=== PATIENT | male | born 1985 | race Caucasian/White ===

== ENCOUNTER 2019-05-29 21:12 | Emergency (ER) | payer BC, SELFPAY ==
--- NOTE | ~2019-05-29 | XR_ITS ---
EXAMINATION: XR elbow RT 2V, XR forearm RT 2V, XR wrist RT min 3V DATE: 05/29/2019 21:48 INDICATION: Posttraumatic lateral sided right elbow forearm and wrist pain TECHNIQUE: 1. Anteroposterior, two oblique and lateral views of the right elbow were obtained. 2. Anteroposterior and lateral views of the right forearm were obtained. 3. PA, oblique, lateral and navicular views of the right wrist were obtained. COMPARISON: None. FINDINGS: Alignment is normal from the right elbow through the right wrist and visualized hand. No fracture. Christy int spaces are normal. No right elbow joint effusion. Soft tissue swelling at the volar and radial as pect of the distal forearm. IMPRESSION: 1. No acute osseous abnormality. Reviewed, dictated and finalized at location A. OSURGICAL NURSE PRACTITIONER IMPRESSION: 1. No acute osseous abnormality. IMPRESSION: 1. No acute osseous abnormality.
[2019-05-29 21:21] VITALS: BP 146/101; PULSE 106; RESP 20; TEMP 37.3; O2SAT 97
--- NOTE | 2019-05-29 23:15 | ED_ITS ---
HPI - Wound/Laceration General Chief Complaint: Wound/Laceration Stated Complaint: right arm injury Time Seen by Provider: 05/29/19 22:27 Source: patient and family Mode of arrival: ambulatory Limitations: no limitations History of Present Illness HPI narrative: 33-year-old male Essentially healthy Hit a wooden railing with his right forearm and broke the railing Forearm is sore and swollen and he wants to see if he broke it also Also a minor superficial scrape/laceration in the upper forearm Onset (ago): hour(s) Extremity Location: Right: arm Associated symptoms: pain and other (Swelling) Related Data Home Medications Medication Instructions Recorded Confirmed hydrocodone-acetaminophen [[place]] 1 tablet PO DAILY PRN 05/29/19 Allergies Allergy/AdvReac Type Severity Reaction Status Date / Time ketamine Allergy Rash Verified 05/29/19 21:25 Review of Systems Musculoskeletal: Musculoskeletal: Reports myalgias and Reports arthralgias Integumentary/Breasts: Skin/Breast: Reports as per HPI Neurologic: Denies numbness and Denies weakness Exam Const: General: no acute distress Eyes: Conjunctivae: conjunctivae normal EOM: EOMs intact bilaterally Resp: Effort & Inspection: normal respiratory effort Skin: General skin exam: normal color and no pallor Neuro: General: patient oriented x3 and moves all extremities Extrem: Other: Right arm has full range of motion at the elbow in flexion and extension and supination and pronation There is some mild limitation at the wrist of extension Distal pulses and sensation are normal There is swelling and tenderness just above the wrist but no gross deformity There are 2 superficial scrapes on the upper forearm near the elbow Psych: Affect: normal affect Course Vital Signs Vital signs: Vital Signs Temperature 37.3 C 05/29/19 21:21 Pulse Rate 106 H 05/29/19 21:21 Respiratory Rate 05/29/19 21:21 Blood Pressure 146/101 H 05/29/19 21:21 Pulse Oximetry 97 05/29/19 21:21 Temperature 37.3 C 05/29/19 21:21 Pulse Rate 106 H 05/29/19 21:21 Respiratory Rate 05/29/19 21:21 Blood Pressure 146/101 H 05/29/19 21:21 Pulse Oximetry 97 05/29/19 21:21 MDM - Wound/Laceration Imaging Data Attestation: I personally reviewed and interpreted this imaging study as follows: (No fracture is seen) Discharge Plan Discharge Clinical Impression: Arm injury Patient Disposition: Home, Self-Care Condition: Stable Instructions: Contusion in Adults (ED), Laceration Without Closure (ED) Prescriptions: No Action hydrocodone-acetaminophen [[place]] 7.5-325 mg Tablet 1 tablet PO DAILY PRN (Reason: Pain) RF: 0 Follow-up/Referrals: Yariel,Chetan Simpson MD [Primary Care Provider] - (as needed)
[2019-05-29 23:29] VITALS: BP 133/82; PULSE 80; RESP 17; TEMP 37; O2SAT 100
== END 2019-05-29 23:30 | disposition home or self-care (01) ==
PROVIDERS: Emergency Provider Emergency Medicine; PCP Internal Medicine
DX: S59.911A Unspecified injury of right forearm, initial encounter (principal); W22.8XXA Striking against or struck by other objects, initial encounter
CPT/HCPCS: 73070; 73090; 73110; 99284

== ENCOUNTER 2021-03-06 16:38 | Emergency (ER) | payer BC, SELFPAY ==
--- NOTE | ~2021-03-06 | CT_ITS ---
EXAMINATION: CTA BRAIN/CAROTID DATE: 03/06/2021 20:53 INDICATION: Headache TECHNIQUE: Computed tomographic angiography (CTA) of the head and neck was performed with 100 mL Omni paque-350 intravenous contrast. Multiplanar reconstructions and maximum intensity projection 3D-recon structions of the carotid arteries and of the intracranial arteries were created by the technologist on a separate workstation. Precontrast CT of the head was also obtained. Automated exposure control and iterative reconstruction technique were employed.The dose-length product was 1771.79 mGy-cm. COMPARISON: None. FINDINGS: Carotid arteries: There is no evident atherosclerotic plaque with 0% stenosis of the left and right carotid bulbs bulb relative to normal distal artery lumen diameter (NASCET criteria). There is % stenosis of the left ca rotid bulb relative to normal distal artery lumen diameter. Head: No acute intracranial hemorrhage, acute infarction or abnormal extra axial fluid collection. Ventricl es are normal and symmetric. No mass/mass effect. Tiny mucous retention cyst in the anterior right ma xillary sinus. The orbits and mastoid air cells are normal. Visualized portion of the upper lungs are clear. Right vertebral artery is dominant. Cervical soft tissues are unremarkable. No pathologically enlarged cervical or superior mediastinal lymphadenopathy. Bones are unremarkable. Intracranial arteries There is no hemodynamically significant stenosis in the vertebral, basilar and internal carotid arter ies. Left vertebral artery is dominant. There are no aneurysms identified. Both A1 and P1 segments a re patent. There is also a patent anterior communicating artery. Cerebral arterial arborization appea rs symmetric. No abnormally enhancing brain lesions. IMPRESSION: 1. No evident atherosclerotic plaque with 0% stenosis of the right and left carotid bulbs relative to normal distal artery lumen diameter (NASCET criteria). 2. Normal brain and cerebral CT angiogram. No acute intracranial process. Reviewed, dictated and finalized at location A. R CLEANER IMPRESSION: 1. No evident atherosclerotic plaque with 0% stenosis of the right and left car otid bulbs relative to normal distal artery lumen diameter (NASCET criteria). 2. Normal brain and cerebral CT angiogram. No acute intracranial process.
[2021-03-06 16:42] VITALS: BP 160/90; PULSE 98; RESP 18; TEMP 36.4; O2SAT 100
[2021-03-06 17:10] LABS: Basophils Absolute Auto 0.1 K/mm3 (0.0-0.1); Basophils Percent Auto 0.5 % (0.2-1.2); Eosinophils Absolute Auto 0.1 K/mm3 (0-0.3); Eosinophils Percent Auto 1.2 % (0-4.4); Hematocrit 40.7 % (42.0-52.0); Hemoglobin 13.9 g/dL (14.0-18.0); Immature Granulocyte Absolute 0.07 K/mm3 (0.00-0.031); Immature Granulocyte Percent A 0.7 % (0-0.5); Lymphocytes Absolute Auto 2.25 K/mm3 (0.9-3.2); Lymphocytes Percent Auto 23.7 % (18.3-44.2); Mean Corpuscular HGB Conc 34.2 g/dl (32-36); Mean Corpuscular Hemoglobin 30.2 pg (26-34); Mean Corpuscular Volume 88.3 fl (80-100); Mean Platelet Volume 9.5 fl (7.4-10.4); Monocytes Absolute Auto 0.8 K/mm3 (0.1-0.6); Monocytes Percent Auto 8.9 % (2.6-8.5); Neutrophils Absolute Auto 6.2 K/mm3 (1.3-6.7); Platelet Count Result 293 k/mm3 (150-375); Red Blood Count 4.61 M/mm3 (4.6-6.20); White Blood Count 9.5 K/mm3 (4.5-10.0)
[2021-03-06 17:29] LABS: Alanine Aminotransferase 58 U/L (4-50); Albumin Level 4.9 g/dL (3.5-5.1); Alkaline Phosphatase 62 U/L (38-126); Anion Gap 9 mmol/L (8-16); Aspartate Amino Transferase 47 U/L (17-59); Bilirubin,Total 0.8 mg/dL (0.2-1.3); Blood Urea Nitrogen 13 mg/dL (9-20); Calcium 9.9 mg/dL (8.4-10.2); Carbon Dioxide 27 mmol/L (22-30); Chloride 103 mmol/L (98-107); Estimated CRCL calculation 126 ml/min; Estimated Glomerular Filt Rate > 60; Glucose 101 mg/dL (65-110); Potassium 3.7 mmol/L (3.4-5.0); Sodium 139 mmol/L (137-145)
[2021-03-06 19:07] VITALS: BP 147/109; PULSE 85; RESP 16; O2SAT 99
--- NOTE | 2021-03-06 20:33 | ED.GENADULT ---
HPI - General Adult General Chief complaint: Recheck/Abnormal Lab/Rx <Haseeb Mueller PA-C - Last Filed: 03/08/21 09:26> Stated complaint: high blood pressure, headache <Haseeb Mueller PA-C - Last Filed: 03/08/21 09:26> Time Seen by Provider: 03/06/21 19:12 <Haseeb Mueller PA-C - Last Filed: 03/08/21 09:26> Source: patient <Haseeb Mueller PA-C - Last Filed: 03/08/21 09:26> Mode of arrival: ambulatory <Haseeb Mueller PA-C - Last Filed: 03/08/21 09:26> Limitations: no limitations <Haseeb Mueller PA-C - Last Filed: 03/08/21 09:26> History of Present Illness HPI narrative: Patient presents with chief complaint of elevated blood pressure prior to arrival. Patient reports that he has been having intermittent headaches that are worsened with activity. Patient reports generally he takes some Advil and the headache completely resolves but this time it did not take his blood pressure at home and it was 176/112. Patient reports that he has been aware that he has some hypertension for some time however he has primary care has not initiated any blood pressure medications. Patient reports today the headache was worse than it has ever been is located in the right sided posterior aspect of his head. He reports changes to his peripheral vision as well as nausea. Patient reports that he was also having some ringing in his ears which is now subsided. Patient states that he called his primary care and talked to his and they both made him come to the emergency department to be evaluated. Patient denies any unilateral weakness, speech changes, or gait disturbance. <Haseeb Mueller PA-C - Last Filed: 03/08/21 09:26> Related Data Home medications: Home Medications Medication Instructions Recorded Confirmed hydrocodone-acetaminophen [[place]] 1 tablet PO DAILY PRN 05/29/19 <Haseeb Mueller PA-C - Last Filed: 03/08/21 09:26> Allergies/adverse reactions: Allergies Allergy/AdvReac Type Severity Reaction Status Date / Time ketamine Allergy Rash Verified 03/06/21 19:05 <Haseeb Mueller PA-C - Last Filed: 03/08/21 09:26> Review of Systems Review of Systems: CONSTITUTIONAL: Denies fever, chills, or sweats. EYES: Reports visual changes, denies redness, or discharge. ENT: Denies rhinorrhea, congestion, sore throat, or otalgia. CARDIOVASCULAR: Denies chest pain, palpitations, or edema. RESPIRATORY: Denies cough or dyspnea. GASTROINTESTINAL: Reports resolved nausea denies abdominal pain, vomiting, or diarrhea. GENITOURINARY: Denies dysuria or hematuria. SKIN: Denies rash or itching. MUSCULOSKELETAL: Denies back pain, joint pain, or myalgia. NEUROLOGIC: Reports headache, denies numbness, dizziness, or weakness. PSYCHIATRIC: Denies anxiety or depression. <Haseeb Mueller PA-C - Last Filed: 03/08/21 09:26> Exam Narrative: GENERAL: Well-appearing, well-nourished, and in no acute distress. HEAD: Normocephalic, atraumatic. EYES: PERRLA and EOMI. ENT: Nares clear, no rhinorrhea or epistaxis. Mucous membranes moist. Oropharynx without tonsillar hypertrophy exudate or other lesions. Bilateral TMs pearly payan nonbulging NECK: Supple. No adenopathy or masses. CHEST: Clear to auscultation. No respiratory distress. No wheezes rales or rhonchi HEART: Regular rate and rhythm. No murmur heard. Normal peripheral pulses. ABDOMEN: Soft, nontender, nondistended, normal active bowel sounds. EXTREMITIES: Normal range of motion. No edema. SKIN: Warm, dry, no rash. NEURO: No focal deficits. Alert and oriented x3. Speech clear and appropriate. No unilateral deficits. Facial symmetry noted. PSYCH: Normal mood and affect. <Haseeb Mueller PA-C - Last Filed: 03/08/21 09:26> Course Reevaluation(s) Reevaluation #1: Rechecked. Patient feels better. He rates his headache as 3/10. He has no focal weakness or numbness. I offered to start patient on antihypertensive. However, he and his declined.
[2021-03-06 23:11] VITALS: BP 135/92; PULSE 86; RESP 16; O2SAT 99
== END 2021-03-06 23:13 | disposition home or self-care (01) ==
PROVIDERS: Emergency Provider Emergency Medicine; PCP Internal Medicine
DX: I10 Essential (primary) hypertension (principal); R51.9 Headache, unspecified
CPT/HCPCS: 36415; 70496; 70498; 80053; 85025; 99284; Q9967

== ENCOUNTER 2022-11-12 23:18 | Emergency (ER) | payer BC, SELFPAY ==
--- NOTE | ~2022-11-12 | CT_ITS ---
CT of the Abdomen and Pelvis: Indication: Pancreatitis Technique: 2.5 mm axial scans were obtained through the abdomen and pelvis following intravenous adm inistration of 100 cc of Omnipaque 350. Dose reduction technique was used on this scan by utilizing a utomated exposure control and iterative reconstruction technique. The dose-length product (DLP) was 1 023.54 mGy-cm. Findings: Scans through the lung bases are unremarkable. The liver, spleen, pancreas, gallbladder, adrenals and kidneys are within normal limits. No evidence of aortic aneurysm. No lymphadenopathy. No bowel obstruction or bowel wall thickening. There is no evidence to suggest acute appendicitis. Images through the pelvis were performed. Urinary bladder unremarkable. Prostate gland and seminal ve sicles are unremarkable. Impression: No significant abnormalities seen. Reviewed, dictated and finalized at location . Impression: No significant abnormalities seen.
[2022-11-12 23:22] VITALS: BP 156/96; PULSE 75; RESP 22; TEMP 36.3; O2SAT 100
[2022-11-12 23:30] VITALS: PULSE 73; RESP 12; O2SAT 98
[2022-11-12 23:34] VITALS: BP 171/97; PULSE 75; RESP 13; O2SAT 99
[2022-11-12 23:34] LABS: Basophils Absolute Auto 0.1 K/mm3 (0.0-0.1); Basophils Percent Auto 0.6 % (0.2-1.2); Eosinophils Absolute Auto 0.7 K/mm3 (0-0.3); Eosinophils Percent Auto 6.7 % (0-4.4); Hematocrit 41.4 % (42.0-52.0); Hemoglobin 13.7 g/dL (14.0-18.0); Immature Granulocyte Absolute 0.07 K/mm3 (0.00-0.031); Immature Granulocyte Percent A 0.7 % (0-0.5); Lymphocytes Absolute Auto 4.24 K/mm3 (0.9-3.2); Lymphocytes Percent Auto 43.1 % (18.3-44.2); Mean Corpuscular HGB Conc 33.1 g/dl (32-36); Mean Corpuscular Hemoglobin 29.7 pg (26-34); Mean Corpuscular Volume 89.6 fl (80-100); Mean Platelet Volume 9.9 fl (7.4-10.4); Monocytes Percent Auto 10.3 % (2.6-8.5); Neutrophils Absolute Auto 3.8 K/mm3 (1.3-6.7); Neutrophils Percent Auto 38.6 % (45.5-73.1); Platelet Count Result 311 k/mm3 (150-375); Red Blood Count 4.62 M/mm3 (4.6-6.20); Red Cell Distribution Width 12.1 % (11.5-14.5); White Blood Count 9.8 K/mm3 (4.5-10.0)
[2022-11-12 23:41] VITALS: BP 158/94; PULSE 70; RESP 15; O2SAT 97
[2022-11-12 23:45] VITALS: PULSE 64; RESP 12; O2SAT 97
[2022-11-12 23:45] LABS: Alanine Aminotransferase 42 U/L (6-50); Albumin Level 4.9 g/dL (3.5-5.1); Alkaline Phosphatase 49 U/L (38-126); Anion Gap 8 mmol/L (8-16); Aspartate Amino Transferase 35 U/L (17-59); Bilirubin,Total 0.5 mg/dL (0.2-1.3); Blood Urea Nitrogen 18 mg/dL (9-20); Calcium 9.4 mg/dL (8.4-10.2); Carbon Dioxide 29 mmol/L (22-30); Chloride 102 mmol/L (98-107); Estimated CRCL calculation 112 ml/min; Estimated Glomerular Filt Rate > 60; Glucose 103 mg/dL (65-110); Lipase 1743 U/L (23-300); Potassium 4.2 mmol/L (3.4-5.0); Sodium 139 mmol/L (137-145)
[2022-11-13] VITALS (11 sets, daily range): BP systolic 125–133; BP diastolic 75–93; PULSE 63–81; RESP 14–19; O2SAT 97–100
[2022-11-13 00:14] LABS: Appearance Urine Clear (Clear); Bilirubin Urine Negative (Negative); Blood Urine Negative (Negative); Color Urine Yellow (Yellow); Glucose Urine UA Negative (Negative); Ketones Urine Negative (Negative); Leukocyte Esterase Ur Negative LEU/UL (Negative); Nitrate Urine Negative (Negative); Protein Urine Negative (Negative); Specific Grav Ur 1.023 (1.001-1.035)
--- NOTE | 2022-11-13 00:30 | ED.ABDPAIN ---
HPI - Abdominal Pain General Chief Complaint: Abdominal Pain Stated Complaint: abd pain Time Seen by Provider: 11/13/22 00:25 Source: patient Mode of arrival: ambulatory Limitations: no limitations History of Present Illness HPI narrative: This is a 36-year-old male that presents to the emergency department for epigastric abdominal pain. Reports he has had several similar attacks over the last month. He has had out patient blood work that was unrevealing. Reports his primary doctor ordered a CT scan, but he was unable to obtain this because insurance denied it. He presents tonight for an acute episode of pain. Associated with nausea. Denies fever, vomiting, or diarrhea. Related Data Home Medications Medication Instructions Recorded Confirmed hydrocodone 7.5 mg-acetaminophen 1 tablet PO DAILY PRN Pain 05/29/19 325 mg tablet ([place]) Allergies Allergy/AdvReac Type Severity Reaction Status Date / Time ketamine Allergy Rash Verified 03/06/21 19:05 Review of Systems Review of Systems: CONSTITUTIONAL: Denies fever GASTROINTESTINAL: Reports abdominal pain, nausea. Denies vomiting, or diarrhea. GENITOURINARY: Denies dysuria All systems reviewed & are unremarkable except as noted in HPI and below PMFSH Past Medical History Medical History (Updated 11/13/22 @ 02:49 by Kelsi Cespedes PA-C) No active medical problems Social History Social History (Updated 11/13/22 @ 00:32 by Kelsi Cespedes PA-C) Alcohol intake: current Alcohol use details: Occasional Exam Narrative: GENERAL: Well-appearing, well-nourished, and in no acute distress. HEAD: Normocephalic, atraumatic. EYES: EOMI. CHEST: Clear to auscultation. No respiratory distress. No wheezes rales or rhonchi HEART: Regular rate and rhythm. No murmur heard. Normal peripheral pulses. ABDOMEN: Soft, nondistended, normal active bowel sounds. Tender to palpation in the epigastrium, without guarding EXTREMITIES: Normal range of motion. No edema. SKIN: Warm, dry, no rash. NEURO: No focal deficits. Alert and oriented x3. PSYCH: Normal mood and affect Course Course Emergency Course: Patient and family updated on work-up. Offered admission, prefer discharge home Vital Signs Vital signs: Vital Signs Temperature 97.4 F L 11/12/22 23:22 Pulse Rate 75 11/12/22 23:22 Respiratory Rate 22 H 11/12/22 23:22 Blood Pressure 156/96 H 11/12/22 23:22 Pulse Oximetry 100 11/12/22 23:22 Oxygen Delivery Room Air 11/12/22 23:22 Temperature 97.4 F L 11/12/22 23:22 Pulse Rate 71 11/13/22 01:15 Respiratory Rate 17 11/13/22 01:15 Blood Pressure 133/75 11/13/22 01:15 Pulse Oximetry 97 11/13/22 01:15 Oxygen Delivery Room Air 11/12/22 23:22 MDM - Abdominal Pain MDM Narrative Medical decision making narrative: Patient presents to the emergency department for epigastric abdominal pain. Reports several previous episodes this month. He is afebrile and nontoxic-appearing. Blood pressure did normalize with treatment of his pain. CBC is without leukocytosis. Shows normocytic anemia with hemoglobin of 13.7. Metabolic panel without concerning findings. Lipase is noted to be elevated at 1743. UA without evidence of infection. CT scan of the abdomen and pelvis shows possible cystitis. Patient is not having any urinary symptoms and his UA is normal. Otherwise it does not show any acute abnormality. Patient and family were updated on case findings. He was offered admission for further management of pancreatitis. They declined at this time. He was instructed he should orally hydrate and remain n.p.o. at least for the next 24 hours. He will be given pain medication as needed. He is to follow-up with his primary provider. Will also be given follow-up with gastroenterology. He was given warnings to return to the ER Differential Diagnosis Differential diagnosis: Likely constipation, diverticulitis, gastroenteritis, pancrea
[2022-11-13 00:35] LABS: Add Urine Microscopic? NO
[2022-11-13] MEDS: MORPHINE SULFATE (*CRX) 4 MG/ML INJ IV PUSH (00:48)
[2022-11-13] MEDS: SODIUM CHLORIDE 0.9% IV 1,000 ML 999 ML IV CONT (00:48)
[2022-11-13] MEDS: ONDANSETRON INJ 4 MG/2 ML VIAL IV PUSH (00:48)
== END 2022-11-13 03:10 | disposition home or self-care (01) ==
PROVIDERS: Emergency Medicine; Emergency Provider Physician Assistant; PCP Internal Medicine
DX: K85.90 Acute pancreatitis without necrosis or infection, unspecified (principal)
CPT/HCPCS: 36415; 74177; 80053; 81003; 83690; 85025; 96361; 96374; 96375; 99284; J2270; J2405; J7030; Q9967